=== PATIENT | male | born 1945 | race Hispanic/Latino ===

== ENCOUNTER 2019-10-03 22:53 | Emergency (ER) | payer MEDICARE ==
[2019-10-03] MEDS ORDERED: ACETAMINOPHEN EXTRA STRENGTH 500 MG TABLET ONE (23:59)
[2019-10-04] MEDS ORDERED: TETANUS/DIPHTHERIA TOXOID [ADULT] 0.5 ML VIAL IM ONE (01:05)
== END 2019-10-04 01:38 | disposition home or self-care (01) ==
LOC: EDH 22:53
DX: S50.811A Abrasion of right forearm, initial encounter (principal); M25.551 Pain in right hip; I10 Essential (primary) hypertension; W17.89XA Other fall from one level to another, initial encounter; Y93.89 Activity, other specified; Y92.098 Other place in other non-institutional residence as the place of occurrence of the external cause; Y99.8 Other external cause status
CPT/HCPCS: 71045; 72170; 73090; 73552; 90471; 90714; 93005